=== PATIENT | male | born 1940 | race Caucasian/White ===

== ENCOUNTER → 2016-11-11 | Outpatient (CLI) | payer MEDICARE ==
[2016-11-11 15:30] LABS: CH 34.2; CHCM 35.4; HCT 41.8 % (39.0-53.0); HDW 2.78; HGB 14.7 gm/dL (13.0-17.5); MCH 34.1 pg (25.0-35.0); MCHC 35.1 g/dL (31.0-37.0); MCV 97.2 fL (80.0-100.0); Mean Platelet Volume 7.4; RBC 4.31 m/uL (4.30-5.90); RDW 13.8 % (11.5-15.5); WBC 24.6 k/uL (3.8-10.6)
[2016-11-11 15:32] LABS: ALT 34 U/L (21-72); AST 33 U/L (17-59); Alkaline Phosphatase 58 U/L (38-126); Anion Gap 10 mmol/L; Blood Urea Nitrogen 17 mg/dL (9-20); Calcium 10.1 mg/dL (8.4-10.2); Carbon Dioxide 29 mmol/L (22-30); Chloride 102 mmol/L (98-107); Creatine Kinase 358 U/L (55-170); Glucose 93 mg/dL (74-99); Non-African American GFR(MDRD) >60 (>60 ml/min/1.73 sqM); Potassium 3.4 mmol/L (3.5-5.1); Sodium 141 mmol/L (137-145); Total Bilirubin 1.3 mg/dL (0.2-1.3); Total Protein 6.8 g/dL (6.3-8.2)
== END | disposition home or self-care (01) ==
LOC: LABWHC1 14:41
PROVIDERS: ATTEND Internal Medicine Clinical Cardiac Electrophysiology
DX: I48.0 Paroxysmal atrial fibrillation (principal); M60.9 Myositis, unspecified; I10 Essential (primary) hypertension
CPT/HCPCS: 36415; 80053; 82550; 82553; 84443; 85027

== ENCOUNTER 2016-11-17 06:08 | Day surgery (SDC) | payer MEDICARE ==
[~2016-11-17 06:08] MED LIST: SODIUM CHLORIDE 0.9% 1,000 ML IV SCH
[2016-11-17] MEDS ORDERED: ceFAZolin 2 GM in SODIUM CHLORIDE 0.9% 100 ML IVPB ONE (06:30)
[2016-11-17 06:44] LABS: Aty Lym Flag Slight; CH 34.4; CHCM 35.5; HCT 44.2 % (39.0-53.0); HDW 2.78; HGB 15.3 gm/dL (13.0-17.5); MCH 33.8 pg (25.0-35.0); MCHC 34.7 g/dL (31.0-37.0); MCV 97.3 fL (80.0-100.0); Mean Platelet Volume 7.1; RBC 4.54 m/uL (4.30-5.90); RDW 14.1 % (11.5-15.5); WBC (Perox) 30.33
[2016-11-17 06:47] LABS: Glucose,Whole Blood 103 mg/dL (75-99)
[2016-11-17 06:58] LABS: WBC 30.8 k/uL (3.8-10.6)
[2016-11-17 07:33] LABS: Anion Gap 8 mmol/L; Blood Urea Nitrogen 18 mg/dL (9-20); Calcium 10.2 mg/dL (8.4-10.2); Carbon Dioxide 24 mmol/L (22-30); Chloride 109 mmol/L (98-107); Glucose 116 mg/dL (74-99); Non-African American GFR(MDRD) >60 (>60 ml/min/1.73 sqM); Potassium 3.9 mmol/L (3.5-5.1); Sodium 141 mmol/L (137-145)
[2016-11-17] MEDS ORDERED: LIDOCAINE URO-JET JELLY 2% 5 ML KIT ONE (07:43)
[2016-11-17] MEDS ORDERED: PROTAMINE SULFATE 10 MG/ML 5 ML VIAL IV ONE (07:45)
[2016-11-17] MEDS ORDERED: MIDAZOLAM 2 MG/2 ML VIAL ONE (07:45)
[2016-11-17] MEDS ORDERED: LIDOCAINE 1% INJ 10MG/ML (20 ML MDV) ONE (07:45)
[2016-11-17] MEDS ORDERED: SUCCINYLCHOLINE CHLORIDE 100 MG/5 ML SYR IV ONE (07:45)
[2016-11-17] MEDS ORDERED: HEPARIN SODIUM 1,000 UNIT/ML VIAL ONE (07:45)
[2016-11-17] MEDS ORDERED: HEPARIN SODIUM,PORCINE 5,000 UNIT/ML 1 ML VIAL ONE (07:45)
[2016-11-17] MEDS ORDERED: PHENYLEPHRINE-0.9% NACL SYG 1 MG/10 ML SYRINGE ONE (07:45)
[2016-11-17] MEDS ORDERED: PROPOFOL 10 MG/ML 20 ML VIAL IV ONE (07:45)
[2016-11-17] MEDS ORDERED: fentaNYL (PF) 50 MCG/ML 2 ML AMP ONE (07:45)
[2016-11-17] MEDS ORDERED: ePHEDrine 50 MG/ML 1 ML AMP ONE (07:45)
[2016-11-17 07:49] LABS: Add Differential Manual Differential
[2016-11-17] MEDS ORDERED: LIDOCAINE URO-JET JELLY 2% 5 ML KIT URETHRAL ONE ×2 (07:51→07:54)
[2016-11-17 07:53] LABS: Nucleated Red Blood Cells 0 /100 WBC (0-0); Total Cells Counted 200
[2016-11-17] MEDS ORDERED: LIDOCAINE 2% INJ 20 MG/ML SQ ONE (08:28)
[2016-11-17] MEDS ORDERED: HEPARIN SODIUM,PORCINE/D5W PMX 25,000 UNIT in DEXTROSE/WATER 1 500ML.BAG IV ONE (08:47)
[2016-11-17 09:40] LABS: Glucose,Whole Blood 124 mg/dL (75-99)
[2016-11-17] MEDS ORDERED: IOHEXOL 350 MG/ML 100 ML BOTTLE INJ ONE (10:50)
[2016-11-17] MEDS ORDERED: ACETAMINOPHEN TAB 325 MG TAB PO PRN (10:50)
[2016-11-17] MEDS ORDERED: HYDROcodone/APAP 5-325MG 1 EACH TAB PO PRN (10:50)
[2016-11-17 10:53] LABS: Glucose,Whole Blood 134 mg/dL (75-99)
[2016-11-17] MEDS ORDERED: SODIUM CHLORIDE 0.9% 1,000 ML IV ONE (11:09)
--- NOTE | 2016-11-17 11:28 | P.PCN ---
Preoperative Diagnosis: Procedures performed ([facility]I - CRYO Ablation) Invasive hemodynamic monitoring while general anesthesia, right femoral arterial line for monitoring and sampling Comprehensive diagnostic EP study with attempted arrhythmia induction CS pacing and recording Catheter the mapping of the tachycardia (NOT 3D mapping) Intracardiac echocardiography Pulmonary vein isolation with transseptal and comprehensive EPS, 92295 Electrical cardioversion for atrial tachycardia Procedure details Patient was brought to the EP lab in a fasting state. Written informed consent was obtained prior to the procedure. Procedure performed under general anesthesia After initial muscle relaxant use, muscle relaxants were not given thereafter in order to assess phrenic nerve during procedure Patient prepped and draped as per protocol Full cryo-set up with standard preparation of the cryoablation tools done Femoral Venous access obtained on the right and left groins Sheaths placed Diagnostic catheters for the high right atrium, phrenic nerve stimulation and pacing, His bundle, RV and coronary sinus placed Intracardiac echo catheter placed Long sheath placed in the right atrium Left and right transseptal catheterization performed under intracardiac echo guidance Intravenous heparin with aCT above 300 Later, catheter positioning and balloon positioning under intracardiac echo Baseline measurements Patient in atrial fibrillation started study, QRS 119 seconds, QT 391 ms HV interval 58 ms Comprehensive diagnostic EP study Atrial pacing performed from the high right atrium and the coronary sinus Burst pacing in the RV Transseptal catheterization performed RA pressure 19/6/14 LA pressure 22/8/15 Transseptal catheterization performed with standard sheath. The cryoablation sheath was then placed with an over the wire exchange without any acute complications. All 4 pulmonary veins were isolated in the following sequence: Left superior followed by left inferior followed by right superior followed by right inferior The cryo-ablation balloon was placed at the os of each vein 1.5 mL of IV dye was injected to confirm an occluded vein Goal during cryoablation was to achieve -30C in the first 30 seconds. If not the balloon was repositioned to obtain this result After completion of Cryoblation with durations from 180-240 seconds, entrance block was confirmed with the Attain circular catheter in a roving fashion around the antrum of the pulmonary veins Phrenic nerve pacing was performed from the SVC, right innominate vein area and diaphragm voltage was monitored as well as manually Left superior pulmonary vein First cryoablation Duration of cryoablation lesion 225 -30C achieved at 30 seconds -40C achieved at 21 seconds Minimum temperature achieved -55C Thaw time greater than 10 seconds Second cryoablation Duration of cryoablation lesion 120 seconds -30C achieved at 30 seconds -40C achieved at 48 seconds Minimum temperature achieved -44C Thaw time 15.5 seconds Vein isolated yes Left inferior pulmonary vein First cryoablation Duration of cryoablation lesion 240 seconds -30C achieved at 33 seconds -40C achieved at 90 seconds Minimum temperature achieved -46C Thaw time 1.3 seconds Vein isolated Second cryoablation Duration of cryoablation lesion 120 seconds -30C achieved at 25 seconds -40C achieveFirst cryoablation 48 seconds Minimum temperature achieved -51C Thaw time 11.2 seconds Vein isolated yes Right superior pulmonary vein, during phrenic nerve pacing First cryoablation Duration of cryoablation lesion 180 seconds -30C achieved at 27 seconds -40C achieved at 40 seconds Minimum temperature achieved -57C Thaw time 23 seconds Second cryoablation Duration of cryoablation lesion 175 seconds -30C achieved at 27 seconds -40C achieved at 40 seconds Minimum temperature achieved -56C Thaw time 26 seconds Vein isolated yes Right inferior pulmonary vein, during phrenic nerve pacing First cryoablation Duration of cryoablation lesion 120 seconds -30C achieved at 32 seconds -40C achieved at 96 seconds Minimum temperature achieved -41C Thaw time 6 seconds Second cryoablation Duration of cryoablation lesion 180 seconds -30C achieved at 25 seconds -40C achieved at 37 seconds Minimum temperature achieved -56C Thaw time 18 seconds Vein isolated yes At the end of the procedure the Achieve catheter was once again used to check for entrance block Phrenic nerve stimulation was performed to confirm diaphragmatic stimulation the end of the procedure Cine fluoroscopy was performed at the very end of the procedure to confirm movement of both diaphragms with inspiration and expiration At the end of the procedure the patient was extubated Heparin was reversed Venous sheaths were removed and hemostasis assured Result Successful pulmonary vein isolation using cryo-ablation Complete entrance block in all 4 veins confirmed No evidence for phrenic nerve injury Electrical cardioversion for atrial tachycardia 215 Lewis seconds Anesthesia: GETA Disposition: floor
[2016-11-17] MEDS ORDERED: ACETAMINOPHEN IV (For NPO) 1,000 MG in EMPTY BAG 1 BAG IVPB ONE (11:30)
[2016-11-17 11:56] LABS: Glucose,Whole Blood 144 mg/dL (75-99)
[2016-11-17 12:52] LABS: Glucose,Whole Blood 143 mg/dL (75-99)
[2016-11-17] MEDS: ATENOLOL 50 MG TAB PO SCH (14:01)
--- NOTE | 2016-11-17 14:07 | P.PCN ---
Preoperative Diagnosis: Dual-chamber biventricular pacemaker interrogated prior to the procedure Reprogrammed to DDD 60 PPM At the end of the procedure Dual-chamber biventricular pacemaker interrogated, lead impedance is stable, sensing within normal limits Reprogrammed once again to DDDR 60-130 the short AV delay
[2016-11-17 14:53] VITALS: BMI 35.5
[2016-11-17] MEDS: FUROSEMIDE 20 MG TAB PO SCH (17:09)
[2016-11-17 17:22] LABS: Glucose,Whole Blood 138 mg/dL (75-99)
[2016-11-17] MEDS ORDERED: RIVAROXABAN 10 MG TAB PO STA (20:40)
[2016-11-17] MEDS: TERAZOSIN 5 MG CAP PO SCH (20:41)
[2016-11-17] MEDS: LISINOPRIL 20 MG TAB PO SCH (20:41)
[2016-11-17] MEDS: POTASSIUM CHLORIDE ER 10 MEQ TAB.ER.PRT PO SCH (20:41)
[2016-11-17 20:52] LABS: Glucose,Whole Blood 136 mg/dL (75-99)
[2016-11-17] MEDS ORDERED: FLECAINIDE 50 MG TAB PO SCH (21:00)
[2016-11-18 07:06] LABS: Glucose,Whole Blood 109 mg/dL (75-99)
--- NOTE | 2016-11-18 07:54 | P.DS ---
Providers Attending physician: Paresh Kaur Primary care physician: Yoni Knutson [facility] Course: Patient is doing well. He did complain of some palpitations. 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 Normal LV function Plan Increase flecainide 200 mg twice daily Patient states that he has muscle pains with Toprol give him switching to atenolol 50 mg daily Continue anticoagulation lifelong Plan Anticoagulated and antiarrhythmic drug therapy for the management If he continues to have symptoms and documented atrial fibrillation despite this drug does, mapping and ablation will be considered Follow-up within the week for a groin check Patient Condition at Discharge: Stable Plan - Discharge Summary New Discharge Prescriptions: Atenolol [Tenormin] 50 mg PO DAILY #1 tab Flecainide [Tambocor] 100 mg PO Q12HR #1 tablet Discharge Medication List Furosemide 20 mg PO BID 02/17/16 [History] Lisinopril [Zestril] 20 mg PO BID 02/17/16 [History] Terazosin [Hytrin] 5 mg PO BID 02/17/16 [History] Rivaroxaban [Xarelto] 20 mg PO DAILY 03/23/16 [History] metFORMIN HCL [Glucophage] 500 mg PO BID 03/23/16 [History] sitaGLIPtin PHOSPHATE [Januvia] 50 mg PO QAM 03/23/16 [History] Potassium Chloride [Klor-Con 10] 10 meq PO BID 11/13/16 [History] Atenolol [Tenormin] 50 mg PO DAILY #1 tab 11/18/16 [Rx] Flecainide [Tambocor] 100 mg PO Q12HR #1 tablet 11/18/16 [Rx] Activity/Diet/Wound Care/Special Instructions: Post EP study - Ablation instructions 1. Keep access sites dry for 2 days. 2. No heavy lifting or straining for 2 days. 3. Avoid bending the hips repeatedly for 2 days. 4. You may go up and down stairs slowly Call if the following is noted 1. Bleeding, increasing swelling or pain at the access sites. 2. Increasing chest discomfort, especially upon taking a deep breath. 3. Increasing shortness of breath, at rest or with exertion. 4. Undue cough / phlegm 5. Difficulty or pain while swallowing. 6. Pain or change in color in the extremities. 7. Fever, chills, rigors. 8. Increasing headache or neurologic symptoms. 9. Dizziness, fainting, palpitations Groin check on Wednesday neymar jo
[2016-11-18 08:24] LABS: Anion Gap 8 mmol/L; Blood Urea Nitrogen 13 mg/dL (9-20); Calcium 9.9 mg/dL (8.4-10.2); Carbon Dioxide 28 mmol/L (22-30); Chloride 104 mmol/L (98-107); Glucose 114 mg/dL (74-99); Non-African American GFR(MDRD) >60 (>60 ml/min/1.73 sqM); Potassium 3.8 mmol/L (3.5-5.1); Sodium 140 mmol/L (137-145)
[2016-11-18] MEDS ORDERED: FLECAINIDE 50 MG TAB PO SCH (09:00)
[2016-11-18] MEDS ORDERED: RIVAROXABAN 10 MG TAB PO SCH ×2 (09:00→17:30)
[2016-11-18] MEDS ORDERED: LINAGLIPTIN 5 MG TABLET PO SCH (09:00)
[2016-11-18] MEDS: POTASSIUM CHLORIDE ER 10 MEQ TAB.ER.PRT PO SCH (09:24)
[2016-11-18] MEDS: ATENOLOL 50 MG TAB PO SCH (09:24)
[2016-11-18] MEDS: TERAZOSIN 5 MG CAP PO SCH (09:24)
[2016-11-18] MEDS: LISINOPRIL 20 MG TAB PO SCH (09:24)
[2016-11-18] MEDS: FUROSEMIDE 20 MG TAB PO SCH (09:24)
[2016-11-18 12:08] LABS: Glucose,Whole Blood 122 mg/dL (75-99)
[2016-11-18 12:31] VITALS: BP 116/59; PULSE 56; RESP 14; TEMP 97.9
== END 2016-11-18 13:48 | disposition home or self-care (01) ==
LOC: CATHEP 06:08 → 3OBS 10:45 → CATHEP 11-18 13:48
PROVIDERS: ATTEND Internal Medicine Clinical Cardiac Electrophysiology
DX: I48.0 Paroxysmal atrial fibrillation (principal); I47.1 Supraventricular tachycardia; Z79.01 Long term (current) use of anticoagulants; Z95.0 Presence of cardiac pacemaker; Z87.891 Personal history of nicotine dependence; Z82.49 Family history of ischemic heart disease and other diseases of the circulatory system; I10 Essential (primary) hypertension; E11.9 Type 2 diabetes mellitus without complications; Z79.84 Long term (current) use of oral hypoglycemic drugs; G47.33 Obstructive sleep apnea (adult) (pediatric); Z99.89 Dependence on other enabling machines and devices; N40.0 Benign prostatic hyperplasia without lower urinary tract symptoms; Z79.82 Long term (current) use of aspirin; Z79.899 Other long term (current) drug therapy
CPT/HCPCS: 93005; 92960; 93662; 93609; 93656; 80048 ×2; 83036; 85025; C1894 ×3; C1769 ×4; C1730 ×3; C1759; C1893; C1733; C1766; J2001; Q9967; J0690; J1644; J0131

== ENCOUNTER 2020-01-29 09:23 | Day surgery (SDC) | payer MEDICARE ==
[2020-01-24 11:27] VITALS: BMI 34.5
[~2020-01-29 09:23] MED LIST changes: +DEXAMETHASONE SOD PHOSPHATE 10 MG/ML 1 ML VIAL IV ONE; +HYDROmorphone 0.5 MG/0.5 ML SYRINGE IVP PRN; +LACTATED RINGERS 1,000 ML IV SCH; +MIDAZOLAM 2 MG/2 ML VIAL IV PRN; +ONDANSETRON 4 MG/2 ML VIAL IVP ONE
[2020-01-29 10:26] VITALS: RESP 16; TEMP 97.8
[2020-01-29] MEDS ORDERED: SODIUM CHLORIDE 0.9% 500 ML 500 ML IV ONE (10:26)
[2020-01-29 10:27] LABS: Glucose,Whole Blood 124 mg/dL (75-99)
[2020-01-29 11:13] LABS: Calcium 10.1 mg/dL (8.4-10.2); Potassium 3.4 mmol/L (3.5-5.1)
[2020-01-29] MEDS ORDERED: PROPOFOL 10 MG/ML 20 ML VIAL IV ONE (12:44)
[2020-01-29] MEDS ORDERED: IOPAMIDOL-250 50ML BTL IV ONE (12:56)
--- NOTE | 2020-01-29 13:47 | P.PCN ---
Preoperative Diagnosis: Diagnosis Lead in the RV port has elevated thresholds Persistent symptomatic atrial fibrillation Frequent PVCs History of A. fib ablation, successful History of biventricular pacemaker for severe bradycardia, with LV lead implanted at [place] and functioning well His bundle lead implanted at [place] subsequently Non-capture of this His bundle lead at high output Procedure #1 Cinefluoroscopy cinefluoroscopy of the leads was performed The patient has an atrial lead in the right atrial appendage LV lead in stable position RV lead in the apex of the right ventricle which is A Metronic 3830-lead screwed in the His bundle area This [employer] pacemaker was interrogated Biventricular pacemaker serial number [id number] Atrial pacing threshold 1 V at 0.4 ms, pacing impedance 490 ohms P waves 1 mV patient in A. fib LV lead threshold 1 V at 0.5 ms, P4-can pacing impedance 5 and 30 ohms, P4-can Threshold in in 3-M2 is 1 warted 1.5 ms Cardioversion for atrial fibrillation, persistent, symptomatic Successful electrical cardioversion to an atrial paced rhythm with a single shock 360 J biphasic in AP configuration Device was then programmed to DDDR 70-130 Plan Patient feels that he is intolerant of lisinopril and has a lot of side effects from this I will switch to losartan 50 mg by mouth daily in the evening and increase metoprolol succinate 100 mg in the morning I emphasized the need for continuing anticoagulation for stroke prevention particularly since he has a past history of amaurosis fugax
--- NOTE | 2020-01-29 13:56 | P.PCN ---
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
[2020-01-29 14:51] VITALS: BP 126/76; PULSE 62
== END 2020-01-29 14:52 | disposition home or self-care (01) ==
LOC: CATHEP 09:23
PROVIDERS: ATTEND Internal Medicine Clinical Cardiac Electrophysiology
DX: I48.19 Other persistent atrial fibrillation (principal); I87.1 Compression of vein; I49.3 Ventricular premature depolarization; I47.2 Ventricular tachycardia; I10 Essential (primary) hypertension; E78.5 Hyperlipidemia, unspecified; G45.3 Amaurosis fugax; E11.9 Type 2 diabetes mellitus without complications; C61 Malignant neoplasm of prostate; G47.33 Obstructive sleep apnea (adult) (pediatric); C91.10 Chronic lymphocytic leukemia of B-cell type not having achieved remission; E66.9 Obesity, unspecified; Z79.84 Long term (current) use of oral hypoglycemic drugs; Z79.899 Other long term (current) drug therapy; Z68.35 Body mass index [BMI] 35.0-35.9, adult; Z95.0 Presence of cardiac pacemaker
CPT/HCPCS: 92960; 36005; 75820; 76000; 80048; J2704; Q9966

== ENCOUNTER 2021-01-07 07:45 | Day surgery (SDC) | payer MEDICARE ==
[2020-12-27 09:44] VITALS: BMI 36.1
[~2021-01-07 07:45] MED LIST changes: -DEXAMETHASONE SOD PHOSPHATE 10 MG/ML 1 ML VIAL IV ONE; -HYDROmorphone 0.5 MG/0.5 ML SYRINGE IVP PRN; +LIDOCAINE 1% (10MG/ML) FOR IV START INTRADERMA PRN; -MIDAZOLAM 2 MG/2 ML VIAL IV PRN; -ONDANSETRON 4 MG/2 ML VIAL IVP ONE; +ceFAZolin 1 GM in SODIUM CHLORIDE 0.9% 250 ML IRRIGATION PRN
[2021-01-07] MEDS ORDERED: SODIUM CHLORIDE 0.9% 1,000 ML IV ONE (08:02)
[2021-01-07 08:24] LABS: Glucose,Whole Blood 158 mg/dL (75-99)
[2021-01-07 08:27] VITALS: RESP 16; TEMP 97.9
[2021-01-07 08:29] LABS: Basophils # (A) 0.1 k/uL (0-0.2); Basophils % (A) 1 %; Eosinophils # (A) 0.1 k/uL (0-0.7); Eosinophils % (A) 0 %; HCT 44.7 % (39.0-53.0); HGB 15.6 gm/dL (13.0-17.5); Lymphocytes % (A) 81 %; MCH 35.2 pg (25.0-35.0); MCHC 34.9 g/dL (31.0-37.0); MCV 100.8 fL (80.0-100.0); Macrocytosis Slight; Mean Platelet Volume 7.2; Monocytes # (A) 0.2 k/uL (0-1.0); Monocytes % (A) 1 %; Neutrophils # (A) 3.4 k/uL (1.3-7.7); Neutrophils % (A) 14 %; Platelet Count 131 k/uL (150-450); RBC 4.43 m/uL (4.30-5.90); RDW 13.8 % (11.5-15.5); WBC 24.8 k/uL (3.8-10.6)
[2021-01-07 08:39] LABS: Calcium 10.4 mg/dL (8.4-10.2); Potassium 3.6 mmol/L (3.5-5.1)
[2021-01-07] MEDS ORDERED: MIDAZOLAM 2 MG/2 ML VIAL ONE (10:25)
[2021-01-07] MEDS ORDERED: fentaNYL (PF) 50 MCG/ML 2 ML AMP ONE (10:25)
[2021-01-07] MEDS ORDERED: PROPOFOL 10 MG/ML 20 ML VIAL IV ONE (10:25)
[2021-01-07] MEDS ORDERED: LIDOCAINE 1% INJ 10MG/ML (20 ML MDV) ONE (10:51)
[2021-01-07] MEDS ORDERED: LIDOCAINE 1% INJ 10MG/ML (20 ML MDV) SQ ONE (10:59)
[2021-01-07] MEDS ORDERED: HYDROcodone/APAP 5-325MG 1 EACH TAB PO PRN (11:59)
[2021-01-07] MEDS ORDERED: ACETAMINOPHEN TAB 325 MG TAB PO PRN (11:59)
[2021-01-07] MEDS ORDERED: ALBUTEROL NEBULIZED 2.5 MG/3 ML INHALATION PRN (12:03)
[2021-01-07] MEDS ORDERED: POTASSIUM CHLORIDE ER 20 MEQ TAB.ER PO PRN (12:03)
[2021-01-07] MEDS ORDERED: FUROSEMIDE 20 MG TAB PO PRN (12:03)
[2021-01-07] MEDS ORDERED: VANCOMYCIN IVPB STA (12:11)
[2021-01-07] MEDS ORDERED: SODIUM CHLORIDE 0.9% IVPB STA (12:11)
--- NOTE | 2021-01-07 12:24 | P.EPPROC ---
- EP Procedure Note Electrophysiology Procedure Note: Cinefluoroscopy of the leads Cinefluoroscopy of the leads was performed prior to the procedure the atrial lead is in the right atrial appendage His bundle lead appeared to be in the vicinity of the tricuspid area on fluoroscopy of his complete non-capture this fundally LV lead in the lateral vein RV lead in the apex At the end of the procedure after extraction of the His bundle lead V1 left with the atrial lead RV lead in the LV lead No fractures or breaks noted.
[2021-01-07] MEDS ORDERED: VANCOMYCIN 1,750 MG in SODIUM CHLORIDE 0.9% 500 ML 500 ML IVPB ONE (12:30)
--- NOTE | 2021-01-07 13:14 | CE ---
CARDIAC ELECTROPHYSIOLOGY REPORT Eddie Guerrier has a biventricular pacemaker whose generator is at [facility]. He was brought in for a biventricular pacemaker generator change. The patient is brought to the EP lab in a fasting state. Written informed consent was obtained prior to the procedure. The left shoulder area was prepped and draped as per protocol. 1% lidocaine was used for local anesthesia. A 4 cm incision was made over the generator and carried down to the level of the generator. The generator was explanted. Partial capsulectomy was performed. Originally, he had an atrial lead, RV lead and LV lead implanted by myself several years back. Subsequently, the patient moved to [place] and a His bundle lead was added and pacing was performed with HIS and LV combined. However, the His bundle has complete non capture and therefore I plan to extract the His bundle during this procedure. The His bundle lead was freed from the capsule and the lead sleeve and then the lead was extracted with manual traction. He remained stable through this part of the procedure. The RV lead cap was removed and a new generator was implanted connected to the RV lead, LV lead and atrial lead. The atrial lead is an Isoflex Optum 1944, 52 cm in length and serial number [id number]. The pacing threshold 0.9 V at 0.4 milliseconds. P waves 1.6 mV, pacing impedance 490 ohms. The RV lead is a tendril SDX, model #2088TC, 58 cm in length and serial number [id number]. Pacing threshold 1.5 V at 0.4 milliseconds, pacing impedance of 440 ohms. The LV lead was a Quattro 1458 Q, 75 cm in length and serial number [id number]. The pacing threshold M3-M2 was 2 V at 0.5 milliseconds, pacing impedance of 990 ohms. The new generator implanted was a biventricular pacemaker, [employer] model number GD6012, serial #[id number]. The device was then programmed to DDD mode 60-130 with an AV delay of about 200 milliseconds and LV offset of 20 milliseconds. The generator was then placed in subfascial pocket and the wound was closed in 3 layers and dressed per protocol. RESULT: Successful extraction of the His bundle lead and and biventricular pacemaker generator change. PLAN: IV vancomycin and 24 hours of oral Keflex. MMODL / IJN: [id number] /
[2021-01-07] MEDS ORDERED: ACETAMINOPHEN IV (For NPO) 1,000 MG in EMPTY BAG 1 BAG IVPB ONE (15:00)
[2021-01-07 15:45] VITALS: BP 154/78; PULSE 49
[2021-01-07] MEDS ORDERED: CEPHALEXIN 500 MG CAP PO ONE (16:00)
[2021-01-07] MEDS ORDERED: metFORMIN 500 MG TAB PO SCH (17:30)
[2021-01-07] MEDS ORDERED: METOPROLOL SUCCINATE (ER) 50 MG TAB.ER.24H PO SCH (21:00)
[2021-01-07] MEDS ORDERED: amLODIPine 5 MG TAB PO SCH (21:00)
[2021-01-07] MEDS ORDERED: LOSARTAN 50 MG TAB PO SCH (21:00)
[2021-01-07] MEDS ORDERED: APIXABAN 5 MG TAB PO SCH (21:00)
[2021-01-08] MEDS ORDERED: SPIRONOLACTONE 25 MG TAB PO SCH (09:00)
[2021-01-08] MEDS ORDERED: METOPROLOL SUCCINATE (ER) 100 MG TAB.ER.24H PO SCH (09:00)
[2021-01-08] MEDS ORDERED: LINAGLIPTIN 5 MG TABLET PO SCH (09:00)
[2021-01-08] MEDS ORDERED: AMIODARONE 100 MG TAB PO SCH (09:00)
== END 2021-01-07 16:25 | disposition home or self-care (01) ==
LOC: CATHEP 07:45
PROVIDERS: ATTEND Internal Medicine Clinical Cardiac Electrophysiology
DX: Z45.010 Encounter for checking and testing of cardiac pacemaker pulse generator [battery] (principal); I44.2 Atrioventricular block, complete; I48.91 Unspecified atrial fibrillation; I42.0 Dilated cardiomyopathy; E72.12 Methylenetetrahydrofolate reductase deficiency; I83.90 Asymptomatic varicose veins of unspecified lower extremity; Z20.822 Contact with and (suspected) exposure to COVID-19; I10 Essential (primary) hypertension; E11.9 Type 2 diabetes mellitus without complications; G45.3 Amaurosis fugax; Z72.0 Tobacco use; G47.33 Obstructive sleep apnea (adult) (pediatric); Z85.46 Personal history of malignant neoplasm of prostate; Z85.6 Personal history of leukemia; E66.9 Obesity, unspecified; Z68.36 Body mass index [BMI] 36.0-36.9, adult; Z84.81 Family history of carrier of genetic disease; Z90.89 Acquired absence of other organs; Z98.890 Other specified postprocedural states; Z79.01 Long term (current) use of anticoagulants; Z79.84 Long term (current) use of oral hypoglycemic drugs; Z79.899 Other long term (current) drug therapy
CPT/HCPCS: 33229; 80048; 85025; 87635; C2621; J3370; J0690; J2001

== ENCOUNTER 2022-11-02 08:46 | Day surgery (SDC) | payer MEDICARE ==
[2022-10-29 11:26] VITALS: BMI 30.9
[~2022-11-02 08:46] MED LIST changes: +ALPRAZolam 0.25 MG TAB PO PRN; +ALPRAZolam 0.5 MG TAB PO PRN; +ASPIRIN 325 MG TAB PO STA; +ATORVASTATIN 80 MG TAB PO STA; +HEPARIN SODIUM,PORCINE 10,000 UNIT in SODIUM CHLORIDE 0.9% 1,000 ML IRRIGATION PRN; +HEPARIN SODIUM,PORCINE 2,500 UNIT in SODIUM CHLORIDE 0.9% 250 ML IRRIGATION PRN; -LACTATED RINGERS 1,000 ML IV SCH; -LIDOCAINE 1% (10MG/ML) FOR IV START INTRADERMA PRN; +NITROGLYCERIN SL TABS 0.4 MG TAB SUBLINGUAL PRN; -SODIUM CHLORIDE 0.9% 1,000 ML IV SCH; +SODIUM CHLORIDE 0.9% 1,000 ML in EMPTY BAG 1 BAG IV SCH; -ceFAZolin 1 GM in SODIUM CHLORIDE 0.9% 250 ML IRRIGATION PRN
[2022-11-02] MEDS ORDERED: SODIUM CHLORIDE 0.9% 1,000 ML IV ONE (09:08)
[2022-11-02 09:25] VITALS: RESP 16
[2022-11-02 09:37] LABS: Glucose,Whole Blood 117 mg/dL (70-110)
[2022-11-02] MEDS ORDERED: fentaNYL (PF) 50 MCG/ML 2 ML AMP ONE (10:30)
[2022-11-02] MEDS ORDERED: HEPARIN SODIUM 1,000 UN/ML (10ML VL) ONE (10:30)
[2022-11-02] MEDS ORDERED: VERAPAMIL 2.5 MG/ML 2 ML AMP ONE (10:31)
[2022-11-02] MEDS ORDERED: MIDAZOLAM 2 MG/2 ML VIAL IV ONE (10:53)
[2022-11-02] MEDS ORDERED: fentaNYL (PF) 50 MCG/ML 2 ML AMP IV ONE (10:53)
[2022-11-02] MEDS ORDERED: LIDOCAINE 1% INJ 10MG/ML (5 ML VIAL-PF) SQ ONE (10:53)
[2022-11-02] MEDS ORDERED: VERAPAMIL SYRINGE (5 MG/10 ML) INTRAARTER ONE (10:55)
[2022-11-02] MEDS ORDERED: HEPARIN SODIUM 1,000 UN/ML (10ML VL) IV ONE (11:03)
[2022-11-02] MEDS ORDERED: IOPAMIDOL-370 125ML BTL INJ ONE (11:15)
--- NOTE | 2022-11-02 11:23 | P.CARDCATH ---
Description of Procedure: PROCEDURES PERFORMED: Left heart catheterization, bilateral coronary angiography, iFR RCA INDICATION: Abnormal stress test with inferior fixed defect with inferolateral reversibility CONSENT:I have discussed the risks, benefits and alternative therapies for the above-mentioned procedure and for both sedation/analgesia as well as necessary blood product administration, if indicated, as they pertain to this patient. The patient has indicated understanding and acceptance of the risks and procedures discussed. PROCEDURE: After the risks, benefits and alternatives of the above mentioned procedure explained in detail with the patient, informed consent was obtained. Patient was taken to the catheterization lab and prepped and draped in usual fashion. 1% lidocaine was used to anesthetize the right radial artery. A 6- Emir[place] sheath was placed in the right radial artery using modified Seldinger technique. Left coronary angiography was performed with a 5-Emirati JL 3.0 catheter and right coronary angiography was performed with a 5-Emirati JR5 catheter in various views. A 5-Emirati FR5 catheter was inserted into the left ventricle and pressure measurements were obtained. The decision was made to perform iFR of the RCA. Heparin was given. A 6-Emirati ER to guide was used to engage the RCA. A 0.014 pressure wire was advanced into the proximal RCA and normalized. The wire was then advanced 1 cm distal to the RCA lesion and iFR was performed and was normal at 0.97. The wire and catheter were then removed. The right radial sheath was removed and a TR band was placed with hemostasis achieved. The patient tolerated the procedure well. Patient was transported back to the post catheterization holding area in stable condition. Conscious Sedation: Patient was monitored under the direct supervision of myself for conscious sedation using Versed and fentanyl for a total duration of 25 minutes HEMODYNAMICS: Aorta: 145/93 LV: 134/5, LVEDP 12. SELECTIVE CORONARY ARTERIOGRAPHY: LEFT MAIN: The left main is a large caliber vessel which bifurcates into the LAD and circumflex. There is an ostial 30-40% stenosis as well as a distal left main 30% stenosis LEFT ANTERIOR DESCENDING CORONARY ARTERY: LAD is a large caliber vessel which wraps around to the apex. There is diffuse disease including 30% proximal LAD and 30-40% mid LAD stenosis. LEFT CIRCUMFLEX CORONARY ARTERY: Left circumflex is a moderate caliber vessel with mild luminal irregularities RIGHT CORONARY ARTERY: The right coronary artery is a large caliber vessel which gives off a PDA and PLV branch and is the dominant vessel. There is diffuse mild tenderness 20% stenosis and a proximal RCA 50% stenosis. FINAL IMPRESSION: 1. Mild to moderate CAD as described above including 50% proximal RCA stenosis, 30-40% ostial left main stenosis, 40% LAD stenosis. 2. iFR RCA normal at 0.97 3. Normal left sided filling pressures PLAN: 1. Aggressive risk factor modification per most recent ACC/AHA guidelines. 2. Left main disease appears better than prior imaging from 2016 and does not appear significant. Given reversibility in the inferior lateral area with normal iFR would continue with medical therapy.
[2022-11-02] MEDS ORDERED: SODIUM CHLORIDE 0.9% 500 ML 500 ML IV ONE (13:30)
[2022-11-02 15:41] VITALS: BP 142/79; PULSE 70
== END 2022-11-02 15:41 | disposition home or self-care (01) ==
LOC: CATHCVL 08:46
PROVIDERS: ATTEND Internal Medicine
DX: I25.10 Atherosclerotic heart disease of native coronary artery without angina pectoris (principal); R94.39 Abnormal result of other cardiovascular function study
CPT/HCPCS: 93458; 93799; C1887 ×2; C1769 ×2; C1894; J2250; J2001; J3010; J1644; Q9967

== ENCOUNTER 2023-01-19 09:23 | Observation (INO) | payer MEDICARE ==
[~2023-01-19 09:23] MED LIST changes: -ALPRAZolam 0.25 MG TAB PO PRN; -ALPRAZolam 0.5 MG TAB PO PRN; -ASPIRIN 325 MG TAB PO STA; -ATORVASTATIN 80 MG TAB PO STA; -HEPARIN SODIUM,PORCINE 10,000 UNIT in SODIUM CHLORIDE 0.9% 1,000 ML IRRIGATION PRN; -HEPARIN SODIUM,PORCINE 2,500 UNIT in SODIUM CHLORIDE 0.9% 250 ML IRRIGATION PRN; -NITROGLYCERIN SL TABS 0.4 MG TAB SUBLINGUAL PRN; +SODIUM CHLORIDE 0.9% 1,000 ML IV SCH; -SODIUM CHLORIDE 0.9% 1,000 ML in EMPTY BAG 1 BAG IV SCH
[2023-01-19] MEDS ORDERED: APIXABAN 5 MG TAB PO ONE (10:07)
[2023-01-19 10:18] LABS: Glucose,Whole Blood 134 mg/dL (70-110)
[2023-01-19] MEDS: NYSTATIN 100,000 UNIT/GM POWD 15 GM TOPICAL SCH ×3 (10:22→19:56)
[2023-01-19 10:48] LABS: HCT 45.4 % (39.0-53.0); HGB 15.1 gm/dL (13.0-17.5); MCH 33.7 pg (25.0-35.0); MCHC 33.3 g/dL (31.0-37.0); MCV 101.1 fL (80.0-100.0); Macrocytosis Slight; Mean Platelet Volume 7.7; Platelet Count 99 k/uL (150-450); RBC 4.49 m/uL (4.30-5.90); RDW 14.6 % (11.5-15.5); WBC 21.9 k/uL (3.8-10.6)
[2023-01-19 11:16] LABS: Lymphocytes # (M) 19.71 k/uL (1.0-4.8); Monocytes # (M) 0.44 k/uL (0-1.0); Neutrophils # (M) 1.75 k/uL (1.3-7.7); Neutrophils % (M) 8 %; Nucleated Red Blood Cells 0 /100 WBC (0-0); Total Cells Counted 200
[2023-01-19] MEDS ORDERED: PROPOFOL 10 MG/ML 20 ML VIAL IV ONE (11:45)
[2023-01-19] MEDS ORDERED: GLYCOPYRROLATE 0.2 MG/ML 2 ML VIAL ONE (11:45)
[2023-01-19] MEDS ORDERED: SUCCINYLCHOLINE CHLORIDE 200 MG/10 ML VIAL IV ONE (11:45)
[2023-01-19] MEDS ORDERED: NEOSTIGMINE 1 MG/ML 10 ML VIAL ONE (11:45)
[2023-01-19] MEDS ORDERED: HEPARIN SODIUM,PORCINE 10,000 UNIT/ML 1 ML VIAL ONE (11:45)
[2023-01-19] MEDS ORDERED: LIDOCAINE 2% INJ 20 MG/ML (2 ML VIAL) ONE (11:45)
[2023-01-19] MEDS ORDERED: fentaNYL (PF) 50 MCG/ML 2 ML AMP ONE (11:45)
[2023-01-19] MEDS ORDERED: LIDOCAINE 1% INJ 10MG/ML (20 ML MDV) ONE (12:15)
[2023-01-19] MEDS ORDERED: LIDOCAINE 1% INJ 10MG/ML (30 ML VIAL-PF) SQ ONE (12:50)
[2023-01-19] MEDS ORDERED: HEPARIN SOD,PORK IN 0.45% NACL 25,000 UNIT in 0.45% NACL 1 250ML.BAG IV ONE (13:00)
[2023-01-19] MEDS ORDERED: IOPAMIDOL-370 100ML BTL INJ ONE (14:44)
[2023-01-19] MEDS ORDERED: HEPARIN SODIUM (1,000 UNIT/ML) 1,000 UNIT in SODIUM CHLORIDE 0.9% 1,000 ML IRRIGATION ONE (15:00)
[2023-01-19] MEDS ORDERED: SODIUM CHLORIDE 0.9% 1,000 ML IV ONE (16:46)
[2023-01-19] MEDS ORDERED: FUROSEMIDE 20 MG TAB PO PRN (17:16)
[2023-01-19] MEDS ORDERED: ALBUTEROL NEBULIZED 2.5 MG/3 ML INHALATION PRN (17:16)
[2023-01-19] MEDS ORDERED: POTASSIUM CHLORIDE ER 20 MEQ TAB.ER PO PRN (17:16)
--- NOTE | 2023-01-19 17:22 | P.HPCAR ---
History of Present Illness This is Dr. 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 PLAN: A. fib ablation HPI Patient continues to be short of breath tired fatigue Amiodarone has not maintains sinus rhythm. He underwent an A. fib ablation many years back PVI ROS: No fever chills or rigors, no cough, phlegm or expectoration, no nausea, vomiting or diarrhea, no hematuria, dysuria, no musculoskeletal complaints, no strokes or seizures, no skin lesions. EXAMINATION: 97.2F pulse rate in the 60s respirations 18 Blood pressure 163/86 Breath sounds are equal bilaterally no rhonchi no crackles Heart sounds are irregular REVIEW OF LABS, ECG & MEDICAL DATA Elevated white count 21,000 Physical Exam Vitals: Vital Signs Temp Pulse Resp BP Pulse Ox 01/19/23 10:19 97.2 F L 68 18 163/86 97 Intake and Output 01/19/23 01/19/23 01/19/23 06:59 14:59 22:59 Intake Total 1060 550 Output Total 225 Balance 1060 325 Intake: IV 1060 550 Output: Urine 225 Other: Weight 104.9 kg Past Medical History Past Medical History: Atrial Fibrillation, Cancer, Heart Failure, COPD, Diabetes Mellitus, Hypertension, Osteoarthritis (OA), Prostate Disorder, Sleep Apnea/CPAP/BIPAP, Vascular Disorder Additional Past Medical History / Comment(s): SEE DR. KAUR'S H&P. 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 for vascular issue, veronica cataracts removed, nasal surg. for recurrent bleeding from Xarelto, laser surg.veronica eye, "updated pacemaker 2018", ORIF rt wrist/plate, prostatectomy Past Anesthesia/Blood Transfusion Reactions: No Reported Reaction Additional Past Anesthesia/Blood Transfusion Reaction / Comment(s): Pt has never received blood. Type of Cardiac Device: Permanent Pacemaker Device Placement Date:: 2017 Smoking Status: Former smoker - Past Family History Mother Family Medical History: Cancer Additional Family Medical History / Comment(s): BREAST CA Father Family Medical History: Hypertension Additional Family Medical History / Comment(s): LIVED TILL AGE 92 Physical Examination Vital Signs Temp Pulse Resp BP Pulse Ox 01/19/23 10:19 97.2 F L 68 18 163/86 97 Intake and Output 01/19/23 01/19/23 01/19/23 06:59 14:59 22:59 Intake Total 1060 550 Output Total 225 Balance 1060 325 Intake: IV 1060 550 Output: Urine 225 Other: Weight 104.9 kg Results 01/19/23 10:10 CBC 01/19/23 Range/Units 10:10 WBC 21.9 H (3.8-10.6) k/uL RBC 4.49 (4.30-5.90) m/uL Hgb 15.1 (13.0-17.5) gm/dL Hct 45.4 (39.0-53.0) % Plt Count 99 L (150-450) k/uL Current Medications Generic Name Dose Route Start Last Admin Trade Name Freq PRN Reason Stop Dose Admin Albuterol Sulfate 2.5 mg 01/19/23 17:16 Albuterol Nebulized 2.5 Mg/3 Ml INHALATION Q6H PRN Dyspnea Amlodipine Besylate 10 mg 01/20/23 13:30 Amlodipine 10 Mg Tab PO PC-LUNCH GRICELDA Apixaban 5 mg 01/19/23 21:00 Apixaban 5 Mg Tab PO BID GRICELDA Protocol Ezetimibe 10 mg 01/20/23 12:00 Ezetimibe 10 Mg Tab PO 1200 GRICELDA Furosemide 20 mg 01/19/23 17:16 Furosemide 20 Mg Tab PO BID PRN Edema Sodium Chloride 1,000 mls @ 50 mls/hr 01/19/23 06:02 01/19/23 10:21 Saline 0.9% IV 02/18/23 06:03 1,000 mls .Q20H PENDING SALE TO [facility] Administration Losartan Potassium 50 mg 01/19/23 21:00 Losartan 50 Mg Tab PO BID PENDING SALE TO [facility] Metformin HCl 500 mg 01/19/23 21:00 Metformin 500 Mg Tab PO BID PENDING SALE TO [facility] Metoprolol Succinate 100 mg 01/19/23 21:00 Metoprolol Succinate (Er) 100 Mg Tab.Er.24h PO BID PENDING SALE TO [facility] Non-Formulary Medication 10 mg 01/20/23 12:00 Rosuvastatin PO 1200 PENDING SALE TO [facility] Non-Formulary Medication 50 mg 01/20/23 09:00 Sitagliptin Phosphate [Januvia] PO QAM PENDING SALE TO [facility] Non-Formulary Medication 20 meq 01/19/23 17:16 Potassium Chloride [Klor-Con 10 Er] PO DAILY PRN takes if takes diuretic Nystatin 1 applic 01/19/23 06:02 Nystatin 100,000 Unit/Gm Powd 15 Gm TOPICAL 02/18/23 06:03 BID PENDING SALE TO [facility] Protocol Intake and Output 01/19/23 01/19/23 01/19/23 06:59 14:59 22:59 Intake Total 1060 550 Output Total 225 Balance 1060 325 Intake: IV 1060 550 Output: Urine 225 Other: Weight 104.9 kg Patient Weight 01/20/23 06:59 Weight 104.9 kg 01/19/23 10:10
--- NOTE | 2023-01-19 17:40 | P.EPPROC ---
- EP Procedure Note Electrophysiology Procedure Note: PROCEDURE A. fib ablation/ DIAGNOSIS Persistent Atrial fibrillation, symptomatic, refractory to therapy RESULT No left atrial appendage mass seen on intracardiac echo Successful A. fib ablation/pulmonary vein isolation of all veins using cryo- ablation Successful left atrial roof ablation Successful posterior left atrial wall ablation Ablation of the ridge between the left sided veins and the appendage Ablation the mitral isthmus Ablation of the anterior LA wall, focal Ablation of the posterior inferior LA wall, focal Complete entrance block in all 4 veins confirmed No evidence for phrenic nerve injury Esophageal deflection YES Patient remained in an organized atrial fibrillation Electrical cardioversion with a synchronized shock across the chest YES PROCEDURE DETAILS Written informed consent prior to procedure. Patient brought to the EP lab. General anesthesia given. Heparin administered. ACT maintained above 300 seconds Biventricular pacemaker interrogated and reprogrammed to VVI mode 50 beats a minute. Both groins prepped and draped per protocol and venous sheaths placed. Esophagus intubated, circa catheter for temperature monitoring an endoscope for possible esophageal deflection. Phrenic nerve monitoring performed. Esophageal temperature monitoring pe rformed. Esophageal deflection performed if circa catheter overlapping with the balloon or circa temperature less than 27.5C Intracardiac echocardiography performed. Pericardium evaluated. Left atrial appendage evaluated. Left atrium evaluated along with pulmonary veins Transseptal catheterization performed under fluoroscopic guidance and intracardiac echo guidance Cryoablation sheath exchanged, balloon catheter along with achieve catheter placed in the left atrium. Pulmonary veins isolated in the following sequence: Left superior pulmonary vein followed by left inferior pulmonary vein, followed by right inferior pulmonary vein and lastly right superior pulmonary vein. Phrenic nerve stimulation along with capture thresholds within the SVC and right superior pulmonary vein to identify the phrenic nerve proximity to the cryo- balloon. Pulmonary veins isolated and confirmed with entrance and exit block. Phrenic nerve integrity confirmed at the end of the procedure Ablation of the left atrial roof performed with sequential lesions from the left superior to the right superior pulmonary veins. Ablation of the electrograms confirmed with voltage mapping Ablation of the left atrial posterior wall performed and confirmed with voltage mapping Ablation of the mitral isthmus Ablation of the ridge between the left atrial appendage and pulmonary veins Focal ablation anterior LA wall in the fractionated area Focal ablation in the fractionated area posterior inferior LA wall below and posterior to right inferior pulmonary vein Patient remained in organized atrial fibrillation cycle length approximately 280 ms Electrical cardioversion performed for persistence of atrial fibrillation despite successful ablation. Diagnostic catheters for the high right atrium, His bundle, coronary sinus placed. LA and RA pressures recorded RA pressure: 07/02/10 LA pressure: 20/12 Diagnostic EP study with coronary sinus pacing and recording Baseline measurements: Sinus cycle length 07/27/2002, KS interval 198 and QRS 163 ms Venous sheaths were removed and hemostasis assured with a closure device. Patient extubated and transferred to recovery [facility] biventricular pacemaker interrogated Atrial pacing threshold 0.8 V at 0.4 ms, P waves 1 mV pacing impedance 440 ohms RV pacing threshold 1.2 V at 0.4 ms, R waves 11 mV and pacing impedance 390 ohms LV pacing threshold 0.9 V at 0.5 ms and pacing impedance of 740 ohms Increase procedural time: Following PVI, linear ablation left atrial roof, posterior wall of the LAD, mitral isthmus and the ridge between the left atrial appendage and the left-sided pulmonary veins, further activation mapping was performed Fractionated electrograms with very long signals spanning the diastolic interval, were noted RF ablation performed in the anterior LA wall RF ablation performed in the posterior inferior LA wall below and posterior to the right inferior pulmonary vein performed At this site the cycle length of the tachycardia decreased to 210 ms briefly but did not terminate PROCEDURES PERFORMED Diagnostic EP study CS pacing and recording Left and right transseptal catheterization Catheter the mapping of the tachycardia Intracardiac echocardiography Pulmonary vein isolation with transseptal and comprehensive EPS, [id number] Extended procedure duration Left atrial roof line, +[id number] Left atrial posterior wall ablation Linear ablation, left atrium ridge, +[id number] Linear ablation, mitral isthmus Focal ablation anterior LA wall Focal ablation posterior inferior LA wall Electrical cardioversion with a synchronized shock across the chest [id number]
[2023-01-19] MEDS ORDERED: DEXTROSE 50% SYRINGE 50 ML IVP PRN ×2 (18:31)
[2023-01-19 19:00] LABS: ALT 25 U/L (4-49); AST 69 U/L (17-59); African American GFR (CKD) 85 (>60 ml/min/1.73 sqM); Albumin 3.8 g/dL (3.5-5.0); Albumin/Globulin Ratio 1.5; Alkaline Phosphatase 76 U/L (38-126); Anion Gap 10 mmol/L; Blood Urea Nitrogen 13 mg/dL (9-20); Calcium 9.2 mg/dL (8.4-10.2); Carbon Dioxide 22 mmol/L (22-30); Chloride 106 mmol/L (98-107); Creatine Kinase 269 U/L (55-170); Globulin 2.6 g/dL; Glucose 161 mg/dL (74-99); Lipase 182 U/L (23-300); Non-African American GFR(CKD) 73 (>60 ml/min/1.73 sqM); Sodium 138 mmol/L (137-145); Total Bilirubin 1.5 mg/dL (0.2-1.3); Total Protein 6.4 g/dL (6.3-8.2)
[2023-01-19 19:01] LABS: Potassium 4.5 mmol/L (3.5-5.1)
[2023-01-19] MEDS: METOPROLOL SUCCINATE (ER) 100 MG TAB.ER.24H PO SCH (19:56)
[2023-01-19] MEDS: LOSARTAN 50 MG TAB PO SCH (19:56)
[2023-01-19] MEDS: APIXABAN 5 MG TAB PO SCH (19:56)
[2023-01-19 20:25] LABS: Glucose,Whole Blood 151 mg/dL (70-110)
[2023-01-20 06:05] LABS: Glucose,Whole Blood 137 mg/dL (70-110)
--- NOTE | 2023-01-20 08:21 | PN ---
PROGRESS NOTE SUBJECTIVE: Eddie Guerrier underwent an EP study and ablation yesterday. This was a very long procedure under general anesthesia, lasting over 4 to 5 hours. He is doing well today. He has minimal pleuritic chest discomfort. He does not appear short of breath. He is sitting in a chair and eating breakfast. No swallowing problems. His groins are mildly tender. On examination, his blood pressure is normal. He is afebrile. He is left ventricular paced at this time. His pacemaker was interrogated yesterday before and after the procedure and was functioning normally. Breath sounds are reduced bilaterally with crackles at the bases. Heart sounds S1, S2 normal. No murmurs. His labs are reviewed. 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 Hemoglobin is normal. His electrolytes are normal. Renal function is normal. TSH is normal. Hemoglobin A1c is about 6.7. IMPRESSION: 1. Persistent atrial fibrillation, status post extensive atrial fibrillation focusing only in the left atrium at this time. The patient required electrical cardioversion at the end of the procedure. The right atrium and the coronary sinus were not mapped. 2. Complete heart block, status post biventricular pacemaker. 3. Intermediate multivessel coronary artery disease. PLAN: Suggest discontinuing amiodarone completely. Continue all other cardiac medications. I emphasized the importance of taking statin, Zetia, and Repatha along with anticoagulation and other heart failure medications. Metoprolol will continue. He is quite unsteady in his feet today and he has bilateral crackles. Given incentive spirometer and respiratory therapy. Physical Therapy will be consulted for ambulation today. We will hold his discharge today, and if he is stable tomorrow, then he should be able to go home. We will reassess him later on the day for some more IV Lasix if his crackles do not improve with ambulation and incentive spirometry. MMODL / IJN: [id number] /
[2023-01-20] MEDS: LINAGLIPTIN 5 MG TABLET PO SCH (10:07)
[2023-01-20] MEDS: APIXABAN 5 MG TAB PO SCH ×2 (10:07→20:21)
[2023-01-20] MEDS: METOPROLOL SUCCINATE (ER) 100 MG TAB.ER.24H PO SCH ×2 (10:07→20:22)
[2023-01-20] MEDS: LOSARTAN 50 MG TAB PO SCH ×2 (10:08→20:22)
[2023-01-20] MEDS: SODIUM CHLORIDE 0.9% NEBULIZ 3 ML INHALATION SCH ×3 (11:01→20:37)
[2023-01-20] MEDS: NYSTATIN 100,000 UNIT/GM POWD 15 GM TOPICAL SCH ×2 (11:34→20:22)
[2023-01-20 12:25] LABS: Glucose,Whole Blood 226 mg/dL (70-110)
[2023-01-20] MEDS: ATORVASTATIN 20 MG TAB PO SCH (12:52)
[2023-01-20] MEDS: EZETIMIBE 10 MG TAB PO SCH (12:52)
[2023-01-20] MEDS: amLODIPine 10 MG TAB PO SCH (12:52)
[2023-01-20 17:22] LABS: Glucose,Whole Blood 156 mg/dL (70-110)
[2023-01-20 20:59] LABS: Glucose,Whole Blood 214 mg/dL (70-110)
[2023-01-21 05:57] LABS: Glucose,Whole Blood 150 mg/dL (70-110)
[2023-01-21] MEDS: SODIUM CHLORIDE 0.9% NEBULIZ 3 ML INHALATION SCH (07:43)
[2023-01-21 08:06] VITALS: BP 127/77; PULSE 105; RESP 17; TEMP 98
[2023-01-21] MEDS: APIXABAN 5 MG TAB PO SCH (08:29)
[2023-01-21] MEDS: LOSARTAN 50 MG TAB PO SCH (08:29)
[2023-01-21] MEDS: METOPROLOL SUCCINATE (ER) 100 MG TAB.ER.24H PO SCH (08:30)
[2023-01-21] MEDS: LINAGLIPTIN 5 MG TABLET PO SCH (08:30)
[2023-01-21] MEDS: NYSTATIN 100,000 UNIT/GM POWD 15 GM TOPICAL SCH (12:08)
[2023-01-21] MEDS ORDERED: metFORMIN 500 MG TAB PO STA (12:24)
[2023-01-21 12:34] LABS: Glucose,Whole Blood 164 mg/dL (70-110)
[2023-01-21] MEDS: amLODIPine 10 MG TAB PO SCH (12:35)
[2023-01-21] MEDS: ATORVASTATIN 20 MG TAB PO SCH (12:35)
[2023-01-21] MEDS: EZETIMIBE 10 MG TAB PO SCH (12:35)
[2023-01-21] MEDS ORDERED: metFORMIN 500 MG TAB PO SCH (21:00)
== END 2023-01-21 12:50 | disposition home or self-care (01) ==
LOC: CATHEP 09:23 → 6NMEDSUR 16:52 → CATHEP 01-20 10:40
PROVIDERS: ADMIT Internal Medicine Clinical Cardiac Electrophysiology; ATTEND Internal Medicine Clinical Cardiac Electrophysiology
DX: I48.19 Other persistent atrial fibrillation (principal); J44.9 Chronic obstructive pulmonary disease, unspecified; I25.10 Atherosclerotic heart disease of native coronary artery without angina pectoris; E11.9 Type 2 diabetes mellitus without complications; C91.10 Chronic lymphocytic leukemia of B-cell type not having achieved remission; I42.9 Cardiomyopathy, unspecified; I11.0 Hypertensive heart disease with heart failure; I50.9 Heart failure, unspecified; Z85.46 Personal history of malignant neoplasm of prostate; Z87.442 Personal history of urinary calculi; Z95.0 Presence of cardiac pacemaker; Z98.42 Cataract extraction status, left eye; Z98.41 Cataract extraction status, right eye; Z87.891 Personal history of nicotine dependence; Z80.3 Family history of malignant neoplasm of breast; Z82.49 Family history of ischemic heart disease and other diseases of the circulatory system
CPT/HCPCS: 94640 ×3; 94760 ×3; 97162; 93656; 93657; 86900; 86901; 80053; 84443; 82085; 82550; 83690; 85025; 86850; 83036; G0378 ×2; C1759; C1894 ×2; C1769 ×3; C1760; C1730 ×2; C1893; C1733; C1766; C1732; J0330; J1644 ×3; J2710; J2001 ×2; J3010; J2704; Q9967

== ENCOUNTER → 2024-08-30 | Outpatient (CLI) | payer MEDICARE ==
[2024-08-30 18:43] LABS: ALT 10 U/L (10-49); AST 17 U/L (14-35); Albumin/Globulin Ratio 1.74 Ratio (1.60-3.17); Alkaline Phosphatase 107 U/L (41-126); Blood Urea Nitrogen 13.6 mg/dL (9.0-27.0); Calcium 10.1 mg/dL (8.7-10.3); Carbon Dioxide 24.3 mmol/L (21.6-31.8); Chloride 106 mmol/L (96-109); Chol/HDL Ratio 2.46 Ratio; Globulin 2.3 g/dL (1.6-3.3); Glucose 121 mg/dL (70-110); LDL Cholesterol,Calculated 30.4 mg/dL (0.0-131.0); Potassium 4.4 mmol/L (3.5-5.5); Sodium 142 mmol/L (135-145); Total Bilirubin 1.2 mg/dL (0.3-1.2); Total Protein 6.3 g/dL (6.2-8.2); VLDL Calculation 16.54 mg/dL (5.00-40.00)
== END | disposition home or self-care (01) ==
LOC: LABWHC1 11:52
PROVIDERS: ATTEND Internal Medicine Clinical Cardiac Electrophysiology
DX: I48.91 Unspecified atrial fibrillation (principal); I42.9 Cardiomyopathy, unspecified; E78.5 Hyperlipidemia, unspecified
CPT/HCPCS: 36415; 80053; 80061; 84443